=== PATIENT | male | born 1945 | race Caucasian/White ===

== ENCOUNTER 2016-07-09 07:28 | Day surgery (SDC) | payer MEDICARE, OTHER ==
[~2016-07-09] VITALS: Ht 172.7 cm; Wt 101.9 kg
[~2016-07-09 07:28] MED LIST: ANUCORT HC25 M1 RC; ASPIRIN E.C. 8181 MG PO; ATENOLOL25 MG PO; BISACODYL RC; CIPRO 500MG TA500 MG PO; ERYTHROMYCIN500 M1; FLAX SEED OIL1000 M1; HYDROCHLOR50 MG PO; LISINOPRIL40 MG PO; MULTIPLE VITAMI1 CAP PO; NEOMYCIN S500 MG/TAB; OMEGA 31000 MG PO; PRINIVIL40 MG PO; PSYLLIUM HUSK1 CAP PO; TENORMIN 2525 MG/TAB; [UNRECOGNIZED DRUG - OTHER] REC
[2016-07-09 08:15] VITALS: BP 128/75; PULSE 59; TEMP 98.1
[2016-07-09] MEDS ORDERED: HYDRODIURIL50 MG PO (08:40)
[2016-07-09] MEDS ORDERED: ZESTRIL40 MG PO (08:41)
[2016-07-09] MEDS ORDERED: FLAX OIL1000 MG PO (08:42)
[2016-07-09] MEDS ORDERED: ASPIRIN 81M81 MG/TA2 PO (08:42)
[2016-07-09] MEDS ORDERED: MULTIPLE VITAMI1 CAP PO (08:42)
[2016-07-09] MEDS ORDERED: AZILECT1 MG PO (08:43)
[2016-07-09] MEDS ORDERED: ANUSOL-HC SUPPO25 MG RC (08:43)
[2016-07-09] MEDS ORDERED: PRILOSEC 20MG20 MG PO (08:43)
[2016-07-09] MEDS ORDERED: OMEGA-3 FISH1000 MG PO (08:44)
[2016-07-09 09:40] VITALS: BP 137/79; PULSE 58; TEMP 97.5
[2016-07-09 09:55] VITALS: BP 127/77; PULSE 53
[2016-07-09 10:10] VITALS: BP 132/71; PULSE 60
== END 2016-07-09 10:30 | disposition home or self-care (01) ==
LOC: SDCO 07:28
DX: D12.2 Benign neoplasm of ascending colon (principal); D12.4 Benign neoplasm of descending colon; K63.5 Polyp of colon; I10 Essential (primary) hypertension; E78.00 Pure hypercholesterolemia, unspecified; K57.30 Diverticulosis of large intestine without perforation or abscess without bleeding; Z86.010 Personal history of colon polyps
CPT/HCPCS: OP; J2250; J3010; J7030

== ENCOUNTER 2017-06-27 13:00 | Outpatient (RCR) | payer MEDICARE, OTHER ==
[~2017-06-27 13:00] MED LIST changes: +ANUSOL-HC SUPPO25 MG RC; +ASPIRIN 81M81 MG/TA2 PO; +AZILECT1 MG PO; +FLAX OIL1000 MG PO; +HYDRODIURIL50 MG PO; +OMEGA-3 FISH1000 MG PO; +PRILOSEC 20MG20 MG PO; +ZESTRIL40 MG PO
== END 2017-06-30 | disposition home or self-care (01) ==
LOC: MKS.ESL.PT
DX: G20 Parkinson's disease (principal); R26.9 Unspecified abnormalities of gait and mobility
CPT/HCPCS: G8978-GP; G8979-GP; G8999-GN; G9186-GN

== ENCOUNTER → 2017-10-04 | Outpatient (RCR) | payer MEDICARE, OTHER | END | disposition home or self-care (01) | LOC: WSST → MKS.ESL.PT 07-06 09:30 → WSPT 07-08 11:15 → MKS.ESL.PT 07-23 09:15 → WSPT 08-10 10:30 → MKS.ESL.PT 08-13 10:00 → WSST 08-15 10:00 → MKS.ESL.PT 08-20 10:00 → WSST 08-22 13:45 → MKS.ESL.PT 08-27 10:00 → WSST 08-29 13:45 → MKS.ESL.PT 09-03 10:00 → WSST 09-05 13:45 → WSPT 09-06 13:00 → WSST 09-12 13:45 → WSPT 09-20 09:30 → MKS.ESL.PT 09-24 10:00 → WSST 09-26 13:45 → WSPT 09:30 | DX: G20 Parkinson's disease (principal) | CPT/HCPCS: G8978-GP; G8979-GP; G8999-GN; G9186-GN ==

== ENCOUNTER 2017-10-30 11:15 | Outpatient (RCR) | payer MEDICARE, OTHER | END 2018-01-08 | disposition home or self-care (01) | LOC: WSST | DX: G20 Parkinson's disease (principal) ==

== ENCOUNTER 2018-02-03 12:39 | Emergency (ER) | payer MEDICARE, OTHER ==
[~2018-02-03] VITALS: Ht 172.7 cm; Wt 99.1 kg
[2018-02-03 12:40] VITALS: TEMP 97.7
[2018-02-03 13:26] LABS: BASO # 0.1 (0.0-0.2); BASO % 1.3 % (0.0-2.0); EOS # 0.1 (0.0-0.7); EOS % 2.3 % (0-4.0); GRAN # 3.7 (1.4-6.5); GRAN % 68.4 % (42.2-75.2); HEMATOCRIT 39.9 % (42.0-52.0); HEMOGLOBIN 13.8 g/dl (13.5-18.0); LYMPH # 0.9 (1.2-3.4); LYMPH % 16.5 % (20.0-51.0); MEAN CELL VOLUME 91 fl (80.0-100.0); MEAN CORPUSCULAR HEMOGLOBIN 32 pg (27.0-31.0); MEAN CORPUSCULAR HGB CONC 35 g/dl (33.0-37.0); MEAN PLATELET VOLUME 11.3 fl (7.4-10.4); MONO # 0.6 (0.1-0.6); MONO % 11.3 % (1.7-9.3); PLATELET COUNT 143 K/mm3 (130-400); RED BLOOD COUNT 4.38 M/mm3 (4.20-5.60); REDCELL DISTRIBUTION WIDTH-CV 12.8 % (11.5-14.5)
[2018-02-03 14:13] LABS: ALANINE AMINOTRANSFERASE 20 U/L (21-72); ALBUMIN 3.9 gm/dL (3.5-5.0); ALKALINE PHOSPHATASE 64 U/L (50-136); ANION GAP 5 mmol/L (7-16); AST,SGOT 16 U/L (15-37); BILIRUBIN,TOTAL 0.7 mg/dL (0.0-1.0); BLOOD UREA NITROGEN 21 mg/dL (9-20); CALCIUM 9.8 mg/dL (8.4-10.2); CARBON DIOXIDE 32 mmol/L (22-30); CHLORIDE 101 mmol/L (98-107); CREATININE, serum 1.02 mg/dL (0.66-1.25); GLUCOSE 105 mg/dL (74-106); POTASSIUM 3.8 mmol/L (3.4-5.0); SODIUM 138 mmol/L (137-145); TOTAL PROTEIN 6.7 gm/dL (6.4-8.2)
[2018-02-03 14:17] LABS: COLLECTION METHOD CLEAN CATCH
[2018-02-03 14:24] LABS: MUCOUS Present /lpf; PH 6 (5-8); SQUAMOUS EPITHELIAL None Seen /hpf; URINE APPEARANCE Clear; URINE BACTERIA None Seen /hpf; URINE BILIRUBIN Negative (NEGATIVE); URINE BLOOD Negative (NEGATIVE); URINE COLOR Yellow; URINE GLUCOSE Negative (NEGATIVE); URINE KETONE Negative (NEGATIVE); URINE LEUKOCYTE ESTERASE Negative (NEGATIVE); URINE NITRATE Negative (NEGATIVE); URINE PROTEIN(semi-quant) Negative (NEGATIVE); URINE RBC 0-2 /hpf; URINE UROBILINOGEN >=4.0 mg/dL (NEGATIVE)
[2018-02-03 14:33] LABS: TROPONIN-I < 0.012 ng/mL (0.000-0.034)
[2018-02-03 15:40] VITALS: BP 130/70; PULSE 56
== END 2018-02-03 15:42 | disposition home or self-care (01) ==
LOC: COL.ER 12:39
PROVIDERS: Emergency Medicine
DX: R53.81 Other malaise (principal); I10 Essential (primary) hypertension; G20 Parkinson's disease; E78.00 Pure hypercholesterolemia, unspecified; Z79.82 Long term (current) use of aspirin
CPT/HCPCS: J7030

== ENCOUNTER 2018-12-29 09:00 | Outpatient (RCR) | payer MEDICARE, OTHER | END 2019-03-23 | disposition still patient (30) | LOC: WSST | DX: G20 Parkinson's disease (principal) ==

== ENCOUNTER 2019-01-10 18:26 | Emergency (ER) | payer MEDICARE, OTHER ==
[~2019-01-10] VITALS: Ht 172.7 cm; Wt 91.4 kg
[2019-01-10 18:32] VITALS: TEMP 98.2
[2019-01-10 19:09] LABS: BASO # 0.1 (0.0-0.2); BASO % 1.9 % (0.0-2.0); EOS # 0.1 (0.0-0.7); EOS % 2.5 % (0-4.0); GRAN # 3.3 (1.4-6.5); GRAN % 63.2 % (42.2-75.2); HEMOGLOBIN 12.7 g/dl (13.5-18.0); LYMPH # 0.9 (1.2-3.4); LYMPH % 16.7 % (20.0-51.0); MEAN CELL VOLUME 89 fl (80.0-100.0); MEAN CORPUSCULAR HEMOGLOBIN 31 pg (27.0-31.0); MEAN CORPUSCULAR HGB CONC 34 g/dl (33.0-37.0); MONO # 0.8 (0.1-0.6); MONO % 15.5 % (1.7-9.3); PLATELET COUNT 165 K/mm3 (130-400); RED BLOOD COUNT 4.15 M/mm3 (4.20-5.60); REDCELL DISTRIBUTION WIDTH-CV 13.1 % (11.5-14.5)
[2019-01-10 19:13] LABS: ALANINE AMINOTRANSFERASE 13 U/L (21-72); ALBUMIN 3.8 gm/dL (3.5-5.0); ALKALINE PHOSPHATASE 74 U/L (50-136); ANION GAP 8 mmol/L (7-16); AST,SGOT 84 U/L (15-37); BILIRUBIN,TOTAL 1.2 mg/dL (0.0-1.0); BLOOD UREA NITROGEN 21 mg/dL (9-20); C-REACTIVE PROTEIN 1.4 mg/dL (0.0-0.9); CALCIUM 9.8 mg/dL (8.4-10.2); CARBON DIOXIDE 25 mmol/L (22-30); CHLORIDE 106 mmol/L (98-107); CREATININE, serum 0.94 (0.66-1.25); GLUCOSE 116 mg/dL (74-106); POTASSIUM 3.1 mmol/L (3.4-5.0); SODIUM 139 mmol/L (137-145); TOTAL PROTEIN 6.6 gm/dL (6.4-8.2)
[2019-01-10 19:23] LABS: ALCOHOL(ethanol),MEDICAL < 10 mg/dL
[2019-01-10 21:54] LABS: COLLECTION METHOD CLEAN CATCH
[2019-01-10 22:01] LABS: MUCOUS Present /lpf; PH 7 (5-8); SQUAMOUS EPITHELIAL None Seen /hpf; URINE APPEARANCE Clear; URINE BACTERIA None Seen /hpf; URINE BILIRUBIN Negative (NEGATIVE); URINE BLOOD Negative (NEGATIVE); URINE COLOR Yellow; URINE GLUCOSE Negative (NEGATIVE); URINE KETONE Negative (NEGATIVE); URINE LEUKOCYTE ESTERASE Negative (NEGATIVE); URINE NITRATE Negative (NEGATIVE); URINE PROTEIN(semi-quant) Negative (NEGATIVE); URINE RBC None Seen /hpf
[2019-01-10 22:28] VITALS: BP 117/62; PULSE 56
== END 2019-01-10 22:28 | disposition home or self-care (01) ==
LOC: COL.ER 18:26
PROVIDERS: Emergency Medicine
DX: S00.93XA Contusion of unspecified part of head, initial encounter (principal); S80.11XA Contusion of right lower leg, initial encounter; I10 Essential (primary) hypertension; G20 Parkinson's disease; R40.2412 Glasgow coma scale score 13-15, at arrival to emergency department; F17.210 Nicotine dependence, cigarettes, uncomplicated; Z85.46 Personal history of malignant neoplasm of prostate; Z79.82 Long term (current) use of aspirin; W19.XXXA Unspecified fall, initial encounter; Y92.129 Unspecified place in nursing home as the place of occurrence of the external cause
CPT/HCPCS: J7030

== ENCOUNTER → 2019-01-13 | Outpatient (CLI) | payer MEDICARE, OTHER ==
[2019-01-13 10:41] LABS: BASO # 0.1 (0.0-0.2); BASO % 1.8 % (0.0-2.0); EOS # 0.1 (0.0-0.7); EOS % 3.6 % (0-4.0); GRAN # 2.5 (1.4-6.5); GRAN % 64.2 % (42.2-75.2); HEMATOCRIT 38.5 % (42.0-52.0); HEMOGLOBIN 13.5 g/dl (13.5-18.0); LYMPH # 0.6 (1.2-3.4); LYMPH % 15.4 % (20.0-51.0); MEAN CELL VOLUME 88 fl (80.0-100.0); MEAN CORPUSCULAR HEMOGLOBIN 31 pg (27.0-31.0); MEAN CORPUSCULAR HGB CONC 35 g/dl (33.0-37.0); MEAN PLATELET VOLUME 12.2 fl (7.4-10.4); MONO # 0.6 (0.1-0.6); MONO % 14.7 % (1.7-9.3); PLATELET COUNT 156 K/mm3 (130-400); RED BLOOD COUNT 4.37 M/mm3 (4.20-5.60); REDCELL DISTRIBUTION WIDTH-CV 12.9 % (11.5-14.5)
[2019-01-13 11:03] LABS: ALBUMIN 3.7 gm/dL (3.5-5.0); CALCIUM 9.4 mg/dL (8.4-10.2); CREATININE, serum 0.73 (0.66-1.25); TOTAL PROTEIN 6.6 gm/dL (6.4-8.2)
== END ==
LOC: ZLAB.STJ 10:06
PROVIDERS: Family Medicine
DX: I11.9 Hypertensive heart disease without heart failure (principal); G20 Parkinson's disease; R26.2 Difficulty in walking, not elsewhere classified

== ENCOUNTER → 2019-01-13 | Outpatient (CLI) | payer MEDICARE, OTHER ==
[2019-01-13 14:29] LABS: COLLECTION METHOD CLEAN CATCH
[2019-01-13 14:57] LABS: MUCOUS Present /lpf; PH 6 (5-8); SQUAMOUS EPITHELIAL None Seen /hpf; URINE APPEARANCE Clear; URINE BACTERIA None Seen /hpf; URINE BILIRUBIN Negative (NEGATIVE); URINE BLOOD Negative (NEGATIVE); URINE CALCIUM OXALATE CRYSTAL Present /hpf; URINE COLOR Yellow; URINE GLUCOSE Negative (NEGATIVE); URINE KETONE Trace (NEGATIVE); URINE LEUKOCYTE ESTERASE Negative (NEGATIVE); URINE NITRATE Negative (NEGATIVE); URINE PROTEIN(semi-quant) Negative (NEGATIVE); URINE RBC 0-2 /hpf; URINE UROBILINOGEN >=4.0 mg/dL (NEGATIVE)
== END ==
LOC: ZLAB.STJ 14:04
PROVIDERS: Family Medicine
DX: R35.0 Frequency of micturition (principal)

== ENCOUNTER → 2019-01-23 | Outpatient (CLI) | payer MEDICARE, OTHER ==
[2019-01-23 14:54] LABS: ALBUMIN 3.9 gm/dL (3.5-5.0); BILIRUBIN,TOTAL 0.7 mg/dL (0.0-1.0); CALCIUM 9.5 mg/dL (8.4-10.2); CREATININE, serum 0.78 (0.66-1.25); POTASSIUM 3.5 mmol/L (3.4-5.0); TOTAL PROTEIN 6.8 gm/dL (6.4-8.2)
== END ==
LOC: COL.LAB 14:26 → ZLAB.STJ 14:26
PROVIDERS: Family Medicine
DX: G20 Parkinson's disease (principal); R60.9 Edema, unspecified

== ENCOUNTER → 2019-04-24 | Outpatient (CLI) | payer MEDICARE, OTHER ==
[2019-04-24] VITALS (10 sets, daily range): BP systolic 130–155; BP diastolic 75–87; PULSE 58–66
[~2019-04-24] VITALS: Ht 172.7 cm; Wt 78.2 kg
[~2019-04-24] MED LIST changes: +B-12 500 MCG PO; +EPA FISH OIL1 SGL PO; +K-DUR20 MEQ PO; +LASIX 20MG TABL20 MG PO; +REQUIP 1MG T1 MG/TAB PO; +SINEMET 25/101 UDTAB PO; +SINEMET CR 50 M1 TER PO; +VITAMIN D31000 IU PO
--- NOTE | 2019-04-24 10:29 | NUR ---
PT TAKEN TO CT ROOM AND POSITIONED ON THE BED. MONITORING EQUIPMENT PLACED AND IMAGES TAKEN.
--- NOTE | 2019-04-24 10:48 | NUR ---
PT GIVEN 1 MG VERSED AND 50 MCG OF FENTANYL
== END ==
LOC: COL.RAD 09:37
DX: R19.00 Intra-abdominal and pelvic swelling, mass and lump, unspecified site (principal)
CPT/HCPCS: J2250; J3010

== ENCOUNTER → 2019-04-30 | Outpatient (CLI) | payer MEDICARE, OTHER ==
[2019-04-30 11:45] LABS: COLLECTION METHOD CLEAN CATCH
[2019-04-30 11:59] LABS: MUCOUS Present /lpf; PH 7 (5-8); SQUAMOUS EPITHELIAL 0-2 /hpf; URINE APPEARANCE Clear; URINE BACTERIA None Seen /hpf; URINE BILIRUBIN Negative (NEGATIVE); URINE BLOOD Negative (NEGATIVE); URINE COLOR Yellow; URINE GLUCOSE Negative (NEGATIVE); URINE KETONE Negative (NEGATIVE); URINE LEUKOCYTE ESTERASE Negative (NEGATIVE); URINE NITRATE Negative (NEGATIVE); URINE PROTEIN(semi-quant) Negative (NEGATIVE); URINE RBC 0-2 /hpf; URINE UROBILINOGEN Negative (NEGATIVE)
== END ==
LOC: ZLAB.STJ 09:32
PROVIDERS: Family Medicine
DX: Z13.89 Encounter for screening for other disorder (principal)

== ENCOUNTER → 2019-07-02 | Outpatient (CLI) | payer MEDICARE, OTHER ==
[2019-07-02 12:12] LABS: BASO # 0.1 (0.0-0.2); BASO % 1.9 % (0.0-2.0); EOS # 0.2 (0.0-0.7); EOS % 7.5 % (0-4.0); GRAN # 1.7 (1.4-6.5); GRAN % 51.9 % (42.2-75.2); HEMOGLOBIN 11.3 g/dl (13.5-18.0); LYMPH # 0.7 (1.2-3.4); MEAN CELL VOLUME 92 fl (80.0-100.0); MEAN CORPUSCULAR HEMOGLOBIN 31 pg (27.0-31.0); MEAN CORPUSCULAR HGB CONC 33 g/dl (33.0-37.0); MEAN PLATELET VOLUME 11.2 fl (7.4-10.4); MONO # 0.5 (0.1-0.6); MONO % 15.4 % (1.7-9.3); PLATELET COUNT 131 K/mm3 (130-400); REDCELL DISTRIBUTION WIDTH-CV 13.9 % (11.5-14.5)
[2019-07-02 12:27] LABS: BILIRUBIN,TOTAL 0.7 mg/dL (0.0-1.0); CALCIUM 9.9 mg/dL (8.4-10.2); CHOLESTEROL RISK RATIO 4.7; CREATININE, serum 0.65 (0.66-1.25); POTASSIUM 4.1 mmol/L (3.4-5.0); TOTAL PROTEIN 6.6 gm/dL (6.4-8.2)
[2019-07-02 12:40] LABS: ERYTHROCYTE SEDIMENTATION RATE 7 mm/hr (0-30)
== END ==
LOC: ZCOL.LAB 11:22
PROVIDERS: Internal Medicine Medical Oncology
DX: G20 Parkinson's disease (principal); R63.4 Abnormal weight loss; R26.2 Difficulty in walking, not elsewhere classified

== ENCOUNTER → 2019-07-06 | Outpatient (CLI) | payer MEDICARE, OTHER | LOC: COL.RAD 10:47 | DX: R59.0 Localized enlarged lymph nodes (principal); S22.32XD Fracture of one rib, left side, subsequent encounter for fracture with routine healing; R93.89 Abnormal findings on diagnostic imaging of other specified body structures | CPT/HCPCS: Q9967 ==

== ENCOUNTER → 2019-11-10 | Outpatient (CLI) | payer MEDICARE, OTHER ==
[2019-11-10 12:17] LABS: ALBUMIN 4.2 gm/dL (3.5-5.0); BILIRUBIN,TOTAL 0.9 mg/dL (0.0-1.0); CALCIUM 9.8 mg/dL (8.4-10.2); CREATININE, serum 0.67 (0.66-1.25); POTASSIUM 4.2 mmol/L (3.4-5.0)
[2019-11-10 12:18] LABS: BASO # 0.1 (0.0-0.2); BASO % 2.3 % (0.0-2.0); EOS # 0.2 (0.0-0.7); EOS % 6.5 % (0-4.0); GRAN # 1.5 (1.4-6.5); GRAN % 49.1 % (42.2-75.2); HEMOGLOBIN 12.2 g/dl (13.5-18.0); LYMPH # 0.8 (1.2-3.4); LYMPH % 27.2 % (20.0-51.0); MEAN CELL VOLUME 91 fl (80.0-100.0); MEAN CORPUSCULAR HEMOGLOBIN 30 pg (27.0-31.0); MEAN CORPUSCULAR HGB CONC 33 g/dl (33.0-37.0); MEAN PLATELET VOLUME 11.6 fl (7.4-10.4); MONO # 0.5 (0.1-0.6); MONO % 14.6 % (1.7-9.3); PLATELET COUNT 127 K/mm3 (130-400); RED BLOOD COUNT 4.03 M/mm3 (4.20-5.60); REDCELL DISTRIBUTION WIDTH-CV 13.5 % (11.5-14.5)
[2019-11-10 12:19] LABS: HEMATOCRIT 36.6 % (42.0-52.0)
== END ==
LOC: ZLAB.STJ 11:38
PROVIDERS: Internal Medicine
DX: C61 Malignant neoplasm of prostate (principal); D64.9 Anemia, unspecified; E78.5 Hyperlipidemia, unspecified; R73.09 Other abnormal glucose; E55.9 Vitamin D deficiency, unspecified; E46 Unspecified protein-calorie malnutrition

== ENCOUNTER → 2019-12-21 | Outpatient (CLI) | payer MEDICARE, OTHER ==
[2019-12-21 13:44] LABS: BASO # 0.1 (0.0-0.2); BASO % 2.8 % (0.0-2.0); EOS # 0.3 (0.0-0.7); EOS % 8.3 % (0-4.0); GRAN # 1.8 (1.4-6.5); GRAN % 51.3 % (42.2-75.2); LYMPH # 0.8 (1.2-3.4); LYMPH % 21.9 % (20.0-51.0); MEAN CELL VOLUME 90 fl (80.0-100.0); MEAN CORPUSCULAR HEMOGLOBIN 30 pg (27.0-31.0); MEAN CORPUSCULAR HGB CONC 34 g/dl (33.0-37.0); MONO # 0.5 (0.1-0.6); MONO % 15.4 % (1.7-9.3); PLATELET COUNT 136 K/mm3 (130-400); REDCELL DISTRIBUTION WIDTH-CV 13.6 % (11.5-14.5)
[2019-12-21 13:50] LABS: ALBUMIN 4.3 gm/dL (3.5-5.0); BILIRUBIN,TOTAL 0.7 mg/dL (0.0-1.0); CALCIUM 9.8 mg/dL (8.4-10.2); CREATININE, serum 0.81 (0.66-1.25); HEMATOCRIT 35.8 % (42.0-52.0); TOTAL PROTEIN 7.4 gm/dL (6.4-8.2)
== END ==
LOC: ZLAB.STJ 12:23
PROVIDERS: Internal Medicine Medical Oncology
DX: G20 Parkinson's disease (principal); I11.9 Hypertensive heart disease without heart failure

== ENCOUNTER → 2019-12-23 | Outpatient (CLI) | payer MEDICARE, OTHER | LOC: COL.RAD 09:27 | DX: K44.9 Diaphragmatic hernia without obstruction or gangrene (principal); R59.0 Localized enlarged lymph nodes | CPT/HCPCS: Q9967 ==

== ENCOUNTER → 2020-02-19 | Outpatient (CLI) | payer MEDICARE, OTHER ==
[2020-02-19 12:22] LABS: BASO # 0.1 (0.0-0.2); BASO % 2.8 % (0.0-2.0); EOS # 0.3 (0.0-0.7); EOS % 10.2 % (0-4.0); GRAN # 1.4 (1.4-6.5); GRAN % 42.7 % (42.2-75.2); HEMOGLOBIN 11.3 g/dl (13.5-18.0); LYMPH # 0.9 (1.2-3.4); LYMPH % 26.8 % (20.0-51.0); MEAN CELL VOLUME 91 fl (80.0-100.0); MEAN CORPUSCULAR HEMOGLOBIN 30 pg (27.0-31.0); MEAN CORPUSCULAR HGB CONC 33 g/dl (33.0-37.0); MEAN PLATELET VOLUME 11.1 fl (7.4-10.4); MONO # 0.6 (0.1-0.6); MONO % 17.2 % (1.7-9.3); PLATELET COUNT 121 K/mm3 (130-400); RED BLOOD COUNT 3.78 M/mm3 (4.20-5.60); REDCELL DISTRIBUTION WIDTH-CV 13.7 % (11.5-14.5)
[2020-02-19 12:29] LABS: ALBUMIN 3.5 gm/dL (3.5-5.0); ALKALINE PHOSPHATASE 82 U/L (50-136); ANION GAP 5 mmol/L (7-16); AST,SGOT 20 U/L (15-37); BILIRUBIN,TOTAL 0.8 mg/dL (0.0-1.0); BLOOD UREA NITROGEN 17 mg/dL (9-20); CALCIUM 9.6 mg/dL (8.4-10.2); CARBON DIOXIDE 26 mmol/L (22-30); CHLORIDE 106 mmol/L (98-107); CREATININE, serum 0.76 (0.66-1.25); GLUCOSE 102 mg/dL (74-106); LACTATE DEHYDROGENASE 583 U/L (313-618); POTASSIUM 3.9 mmol/L (3.4-5.0); SODIUM 137 mmol/L (137-145); TOTAL PROTEIN 6.1 gm/dL (6.4-8.2)
[2020-02-19 12:34] LABS: ALANINE AMINOTRANSFERASE < 4 U/L (4-49); HEMATOCRIT 34.2 % (42.0-52.0)
== END ==
LOC: ZLAB.STJ 11:32
PROVIDERS: Internal Medicine Medical Oncology
DX: G20 Parkinson's disease (principal); I11.9 Hypertensive heart disease without heart failure

== ENCOUNTER 2020-04-20 09:50 | Emergency (ER) | payer MEDICARE, OTHER ==
[~2020-04-20] VITALS: Ht 175.3 cm; Wt 79.5 kg
[2020-04-20 09:51] VITALS: TEMP 98.1
[2020-04-20 10:23] LABS: HEMOGLOBIN 11.7 g/dl (13.5-18.0); MEAN CELL VOLUME 86 fl (80.0-100.0); MEAN CORPUSCULAR HEMOGLOBIN 30 pg (27.0-31.0); MEAN CORPUSCULAR HGB CONC 34 g/dl (33.0-37.0); MEAN PLATELET VOLUME 10.6 fl (7.4-10.4); PLATELET COUNT 124 K/mm3 (130-400); RED BLOOD COUNT 3.95 M/mm3 (4.20-5.60); REDCELL DISTRIBUTION WIDTH-CV 14.1 % (11.5-14.5)
[2020-04-20 10:33] LABS: INR 1.2 (0.8-3.0); PROTHROMBIN TIME 12.9 SECONDS (9.7-12.8)
[2020-04-20 10:36] LABS: PARTIAL THROMBOPLASTIN TIME 29.2 SECONDS (26.0-37.0)
[2020-04-20 10:37] LABS: ALANINE AMINOTRANSFERASE 13 U/L (4-49); ALBUMIN 3.9 gm/dL (3.5-5.0); ALKALINE PHOSPHATASE 80 U/L (50-136); ANION GAP 7 mmol/L (7-16); AST,SGOT 69 U/L (15-37); BLOOD UREA NITROGEN 24 mg/dL (9-20); CALCIUM 11.1 mg/dL (8.4-10.2); CARBON DIOXIDE 23 mmol/L (22-30); CHLORIDE 106 mmol/L (98-107); CREATININE, serum 0.91 (0.66-1.25); GLUCOSE 118 mg/dL (74-106); LIPASE 193 U/L (23-300); POTASSIUM 3.6 mmol/L (3.4-5.0); SODIUM 136 mmol/L (137-145); TOTAL PROTEIN 6.6 gm/dL (6.4-8.2)
[2020-04-20 10:50] LABS: TROPONIN-I < 0.012 ng/mL (0.000-0.035)
[2020-04-20 11:22] LABS: BASOPHIL 2 % (0-2); EOSINOPHIL 3 % (0-4); LYMPHOCYTE 24 % (20.0-51.0); NEUTROPHILS 59 % (42.0-75.2); PLATELET ESTIMATE DECREASED (NORMAL)
[2020-04-20 11:23] LABS: OVALOCYTES 1+; POIKILOCYTOSIS 1+; TOXIC GRANULATION PRESENT
[2020-04-20] MEDS ORDERED: TYLENOL 325MG325 MG PO (13:19)
[2020-04-20 14:16] VITALS: BP 135/66; PULSE 72
== END 2020-04-20 13:40 | disposition home or self-care (01) ==
LOC: COL.ER 09:50
PROVIDERS: Emergency Medicine
DX: S30.811A Abrasion of abdominal wall, initial encounter (principal); M25.551 Pain in right hip; I95.9 Hypotension, unspecified; Z88.1 Allergy status to other antibiotic agents; Z85.46 Personal history of malignant neoplasm of prostate; Z79.82 Long term (current) use of aspirin; W19.XXXA Unspecified fall, initial encounter; Y92.009 Unspecified place in unspecified non-institutional (private) residence as the place of occurrence of the external cause
CPT/HCPCS: Q9967

== ENCOUNTER → 2020-06-22 | Outpatient (CLI) | payer MEDICARE, OTHER ==
[~2020-06-22] MED LIST changes: +MIRALAX PA17 GM/Dose PO; +TYLENOL 325MG325 MG PO
[2020-06-22 13:05] LABS: CALCIUM 9.6 mg/dL (8.4-10.2); CREATININE, serum 0.82 (0.66-1.25)
== END ==
LOC: ZLAB.STJ 11:43
PROVIDERS: Internal Medicine
DX: I11.9 Hypertensive heart disease without heart failure (principal); E11.00 Type 2 diabetes mellitus with hyperosmolarity without nonketotic hyperglycemic-hyperosmolar coma (NKHHC)

== ENCOUNTER → 2020-08-17 | Outpatient (CLI) | payer MEDICARE, OTHER ==
[2020-08-17 17:37] LABS: HEMOGLOBIN 11.8 g/dl (13.5-18.0); MEAN CELL VOLUME 87 fl (80.0-100.0); MEAN CORPUSCULAR HEMOGLOBIN 29 pg (27.0-31.0); MEAN CORPUSCULAR HGB CONC 34 g/dl (33.0-37.0); MEAN PLATELET VOLUME 12.2 fl (7.4-10.4); PLATELET COUNT 81 K/mm3 (130-400); RED BLOOD COUNT 4.03 M/mm3 (4.20-5.60); REDCELL DISTRIBUTION WIDTH-CV 14.2 % (11.5-14.5)
[2020-08-17 17:43] LABS: ALBUMIN 3.5 gm/dL (3.5-5.0); BILIRUBIN,TOTAL 1.1 mg/dL (0.0-1.0); CALCIUM 11.7 mg/dL (8.4-10.2); CREATININE, serum 1.18 (0.66-1.25); POTASSIUM 3.7 mmol/L (3.4-5.0); TOTAL PROTEIN 6.3 gm/dL (6.4-8.2)
[2020-08-17 17:46] LABS: HEMATOCRIT 35.2 % (42.0-52.0)
[2020-08-17 18:12] LABS: BAND 4 % (0-10); EOSINOPHIL 2 % (0-4); LYMPHOCYTE 24 % (20.0-51.0); NEUTROPHILS 62 % (42.0-75.2)
[2020-08-17 18:13] LABS: PLATELET ESTIMATE DECREASED (NORMAL)
[2020-08-17 18:14] LABS: OVALOCYTES 1+; TEAR DROP CELLS 1+
[2020-08-18 08:01] LABS: PATHOLOGY DIFF REVIEW OK
== END ==
LOC: ZLAB.STJ 16:58
PROVIDERS: Internal Medicine Medical Oncology
DX: I10 Essential (primary) hypertension (principal); R93.89 Abnormal findings on diagnostic imaging of other specified body structures

== ENCOUNTER → 2020-08-29 | Outpatient (CLI) | payer MEDICARE, OTHER | LOC: ZCOL.LAB 17:29 | DX: I11.9 Hypertensive heart disease without heart failure (principal) ==

== ENCOUNTER → 2020-08-30 | Outpatient (CLI) | payer MEDICARE, OTHER ==
[2020-08-30 15:19] LABS: HEMATOCRIT 37.1 % (42.0-52.0); MEAN CELL VOLUME 87 fl (80.0-100.0); MEAN CORPUSCULAR HEMOGLOBIN 28 pg (27.0-31.0); MEAN CORPUSCULAR HGB CONC 32 g/dl (33.0-37.0); MEAN PLATELET VOLUME 12.2 fl (7.4-10.4); PLATELET COUNT 146 K/mm3 (130-400); RED BLOOD COUNT 4.26 M/mm3 (4.20-5.60); REDCELL DISTRIBUTION WIDTH-CV 14.4 % (11.5-14.5)
[2020-08-30 15:24] LABS: ALBUMIN 3.5 gm/dL (3.5-5.0); BILIRUBIN,TOTAL 1.1 mg/dL (0.0-1.0); CALCIUM 11.5 mg/dL (8.4-10.2); CREATININE, serum 0.93 (0.66-1.25); POTASSIUM 4.1 mmol/L (3.4-5.0); TOTAL PROTEIN 6.6 gm/dL (6.4-8.2)
[2020-08-30 16:32] LABS: BAND 14 % (0-10); BURR CELLS 1+; LYMPHOCYTE 39 % (20.0-51.0); NEUTROPHILS 43 % (42.0-75.2); OVALOCYTES 2+; PLATELET ESTIMATE NORMAL (NORMAL)
== END ==
LOC: ZLAB.STJ 13:38
PROVIDERS: Internal Medicine
DX: I11.9 Hypertensive heart disease without heart failure (principal)

== ENCOUNTER → 2020-09-14 | Outpatient (CLI) | payer MEDICARE, OTHER ==
[2020-09-15 00:55] LABS: CALCIUM, IONIZED, SERUM 1.46 mmol/L (1.19-1.41)
== END ==
LOC: ZLAB.STJ 10:29
PROVIDERS: Internal Medicine
DX: E55.9 Vitamin D deficiency, unspecified (principal); I11.9 Hypertensive heart disease without heart failure

== ENCOUNTER → 2020-10-24 | Outpatient (CLI) | payer MEDICARE, OTHER ==
[2020-10-24 14:14] LABS: ALBUMIN 3.4 gm/dL (3.5-5.0); BILIRUBIN,TOTAL 0.5 mg/dL (0.0-1.0); CREATININE, serum 0.81 (0.66-1.25); POTASSIUM 3.7 mmol/L (3.4-5.0); TOTAL PROTEIN 6.1 gm/dL (6.4-8.2)
== END ==
LOC: ZLAB.STJ 13:51
PROVIDERS: Internal Medicine Medical Oncology
DX: Z13.228 Encounter for screening for other metabolic disorders (principal)

== ENCOUNTER → 2020-10-25 | Outpatient (CLI) | payer MEDICARE, OTHER ==
[2020-10-25 18:07] LABS: HEMOGLOBIN 10.3 g/dl (13.5-18.0); MEAN CELL VOLUME 88 fl (80.0-100.0); MEAN CORPUSCULAR HEMOGLOBIN 29 pg (27.0-31.0); MEAN CORPUSCULAR HGB CONC 33 g/dl (33.0-37.0); MEAN PLATELET VOLUME 11.6 fl (7.4-10.4); PLATELET COUNT 111 K/mm3 (130-400); RED BLOOD COUNT 3.57 M/mm3 (4.20-5.60); REDCELL DISTRIBUTION WIDTH-CV 17.9 % (11.5-14.5)
[2020-10-25 18:10] LABS: HEMATOCRIT 31.5 % (42.0-52.0)
[2020-10-25 19:02] LABS: BAND 15 % (0-10); EOSINOPHIL 3 % (0-4); LYMPHOCYTE 46 % (20.0-51.0); NEUTROPHILS 30 % (42.0-75.2); PLATELET ESTIMATE DECREASED (NORMAL)
[2020-10-25 19:03] LABS: ANISOCYTOSIS 1+; HYPOCHROMIA 1+
[2020-10-25 19:04] LABS: OVALOCYTES 1+; POIKILOCYTOSIS 2+; SCHISTOCYTES 1+
[2020-10-25 19:05] LABS: TEAR DROP CELLS 1+
[2020-10-26 08:03] LABS: PATHOLOGY DIFF REVIEW OK
== END ==
LOC: ZLAB.STJ 16:50
PROVIDERS: Internal Medicine Medical Oncology
DX: I11.9 Hypertensive heart disease without heart failure (principal); R74.01 Elevation of levels of liver transaminase levels

== ENCOUNTER → 2020-10-26 | Outpatient (CLI) | payer MEDICARE, OTHER ==
[2020-10-26 10:08] LABS: HEMOGLOBIN 10.3 g/dl (13.5-18.0); MEAN CELL VOLUME 89 fl (80.0-100.0); MEAN CORPUSCULAR HEMOGLOBIN 29 pg (27.0-31.0); MEAN CORPUSCULAR HGB CONC 33 g/dl (33.0-37.0); PLATELET COUNT 111 K/mm3 (130-400); RED BLOOD COUNT 3.55 M/mm3 (4.20-5.60)
[2020-10-26 10:12] LABS: HEMATOCRIT 31.6 % (42.0-52.0)
[2020-10-26 10:31] LABS: BAND 10 % (0-10); BASOPHIL 3 % (0-2); EOSINOPHIL 4 % (0-4); NEUTROPHILS 29 % (42.0-75.2)
[2020-10-26 10:32] LABS: HYPOCHROMIA 1+; OVALOCYTES 2+; POIKILOCYTOSIS 3+
[2020-10-26 10:33] LABS: BURR CELLS 1+; PLATELET ESTIMATE NORMAL (NORMAL)
[2020-10-26 10:34] LABS: ANISOCYTOSIS 2+; LYMPHOCYTE 47 % (20.0-51.0)
== END ==
LOC: ZLAB.STJ 09:28
PROVIDERS: Internal Medicine Medical Oncology
DX: Z01.89 Encounter for other specified special examinations (principal)

== ENCOUNTER → 2020-10-31 | Outpatient (CLI) | payer MEDICARE, OTHER | LOC: ZLAB.STJ 15:48 | DX: E78.00 Pure hypercholesterolemia, unspecified (principal); R74.9 Abnormal serum enzyme level, unspecified ==

== ENCOUNTER → 2020-11-17 | Outpatient (CLI) | payer MEDICARE, OTHER ==
[2020-11-17 13:56] LABS: HEMOGLOBIN 11.2 g/dl (13.5-18.0); MEAN CELL VOLUME 87 fl (80.0-100.0); MEAN CORPUSCULAR HEMOGLOBIN 28 pg (27.0-31.0); MEAN CORPUSCULAR HGB CONC 33 g/dl (33.0-37.0); MEAN PLATELET VOLUME 12.3 fl (7.4-10.4); PLATELET COUNT 129 K/mm3 (130-400); RED BLOOD COUNT 3.96 M/mm3 (4.20-5.60); REDCELL DISTRIBUTION WIDTH-CV 16.4 % (11.5-14.5)
[2020-11-17 13:58] LABS: ALBUMIN 3.8 gm/dL (3.5-5.0); BILIRUBIN,TOTAL 1.2 mg/dL (0.0-1.0); CALCIUM 9.6 mg/dL (8.4-10.2); CREATININE, serum 0.81 (0.66-1.25); POTASSIUM 4.5 mmol/L (3.4-5.0); TOTAL PROTEIN 6.6 gm/dL (6.4-8.2)
[2020-11-17 14:11] LABS: HEMATOCRIT 34.5 % (42.0-52.0)
[2020-11-17 14:37] LABS: BAND 16 % (0-10); BASOPHIL 2 % (0-2); EOSINOPHIL 9 % (0-4); LYMPHOCYTE 46 % (20.0-51.0); NEUTROPHILS 21 % (42.0-75.2); OVALOCYTES 2+; PLATELET ESTIMATE DECREASED (NORMAL); SCHISTOCYTES 1+
[2020-11-17 14:38] LABS: ANISOCYTOSIS 1+; TEAR DROP CELLS 1+
== END ==
LOC: ZLAB.STJ 13:30
PROVIDERS: Internal Medicine Medical Oncology
DX: G20 Parkinson's disease (principal)

== ENCOUNTER → 2020-12-20 | Outpatient (CLI) | payer MEDICARE, OTHER ==
[2020-12-20 10:31] LABS: ALBUMIN 2.9 gm/dL (3.4-4.8); BILIRUBIN,TOTAL 0.9 mg/dL (0.2-1.2); CALCIUM 9.7 mg/dL (8.4-10.2); CREATININE, serum 0.9 mg/dL (0.72-1.25); POTASSIUM 4.2 mmol/L (3.5-4.5); TOTAL PROTEIN 5.1 gm/dL (6.2-8.1)
[2020-12-20 10:32] LABS: MEAN CELL VOLUME 86 fl (80.0-100.0); MEAN CORPUSCULAR HEMOGLOBIN 28 pg (27.0-31.0); MEAN CORPUSCULAR HGB CONC 32 g/dl (33.0-37.0); MEAN PLATELET VOLUME 12.7 fl (7.4-10.4); PLATELET COUNT 96 K/mm3 (130-400); RED BLOOD COUNT 3.61 M/mm3 (4.20-5.60); REDCELL DISTRIBUTION WIDTH-CV 16.7 % (11.5-14.5)
[2020-12-20 10:36] LABS: HEMATOCRIT 31.2 % (42.0-52.0)
[2020-12-20 10:53] LABS: BAND 16 % (0-10); EOSINOPHIL 4 % (0-4); LYMPHOCYTE 37 % (20.0-51.0); NEUTROPHILS 29 % (42.0-75.2); PLATELET ESTIMATE DECREASED (NORMAL)
[2020-12-20 10:54] LABS: ANISOCYTOSIS 1+
== END ==
LOC: ZLAB.STJ 10:25
PROVIDERS: Internal Medicine Medical Oncology
DX: R93.89 Abnormal findings on diagnostic imaging of other specified body structures (principal)

== ENCOUNTER 2021-01-06 11:47 | Inpatient (IN) | payer MEDICARE, OTHER ==
[2021-01-06] VITALS (294 sets, daily range): BP systolic 94; BP diastolic 70; PULSE 100; TEMP 97.6; O2SAT 64–98
[~2021-01-06] VITALS: Ht 175.3 cm; Wt 93.4 kg
[~2021-01-06 11:47] MED LIST changes: -MIRALAX PA17 GM/Dose PO
[2021-01-06 12:14] LABS: HEMOGLOBIN 10.3 g/dl (13.5-18.0); MEAN CELL VOLUME 85 fl (80.0-100.0); MEAN CORPUSCULAR HEMOGLOBIN 28 pg (27.0-31.0); MEAN CORPUSCULAR HGB CONC 32 g/dl (33.0-37.0); PLATELET COUNT 96 K/mm3 (130-400); RED BLOOD COUNT 3.74 M/mm3 (4.20-5.60); REDCELL DISTRIBUTION WIDTH-CV 17.7 % (11.5-14.5)
[2021-01-06 12:19] LABS: HEMATOCRIT 31.9 % (42.0-52.0)
[2021-01-06 12:28] LABS: ALANINE AMINOTRANSFERASE 7 U/L (0-55); ALBUMIN 2.8 gm/dL (3.4-4.8); ALCOHOL(ethanol),MEDICAL < 10 mg/dL (0-10); ALKALINE PHOSPHATASE 219 U/L (40-150); ANION GAP 8 mmol/L (7-16); AST,SGOT 55 U/L (5-34); BILIRUBIN,TOTAL 1.1 mg/dL (0.2-1.2); BLOOD UREA NITROGEN 36 mg/dL (8-26); CALCIUM 10.7 mg/dL (8.4-10.2); CARBON DIOXIDE 20 mmol/L (23-31); CHLORIDE 105 mmol/L (98-107); CREATININE, serum 1.62 mg/dL (0.72-1.25); GLUCOSE 95 mg/dL (70-99); POTASSIUM 5.4 mmol/L (3.5-4.5); SODIUM 133 mmol/L (136-145); TOTAL PROTEIN 5.4 gm/dL (6.2-8.1)
[2021-01-06 12:35] LABS: TROPONIN-I 0.443 ng/mL (0.00-0.033)
[2021-01-06 13:15] LABS: BAND 1 % (0-10); LYMPHOCYTE 40 % (20.0-51.0); METAMYELOCYTE 2 % (0-0); MYELOCYTE 1 % (0-0); NEUTROPHILS 47 % (42.0-75.2)
[2021-01-06 13:16] LABS: SCHISTOCYTES 1+
[2021-01-06 13:17] LABS: ANISOCYTOSIS 1+; HYPOCHROMIA 1+; PLATELET ESTIMATE DECREASED (NORMAL)
[2021-01-06 13:43] LABS: PARTIAL THROMBOPLASTIN TIME 33.3 SECONDS (26.0-37.0)
[2021-01-06 17:30] LABS: CREATININE, serum 1.48 mg/dL (0.72-1.25); POTASSIUM 4.4 mmol/L (3.5-4.5)
--- NOTE | 2021-01-06 17:38 | NUR ---
Pt arrived to the floor at 1626 from ED. The pt did scream out in pain on transfer from ED stretcher to room bed. Upon arrival, the patient had multiple infusions running. Heparin @ 1600 units/hr y-site on NS that was running through a pump at 50 into the 18g in the RAC. Vanc running on a dial-a-flow at 160 into the 18g in the LF, and a bag of 50ml NS unmarked into the RF. Upon assessment of the patient, he has significant swelling to the right forearm that appears to be a large hematoma. He has swelling to bilateral lower extremeties and periorbital puffiness. At 1650, we obtained a set of vitals; the BP was 83/52. Called pharmacist in charge owner to the room, the patient was not responding to verbal stimuli. This RN began to sternal rub the patient and he did not respond. Contacted Dr. Traore, who did not answer, Contact JONATHAN Munoz at 1657 who was in the room with Dr. Traore. Dr. Traore called the pharmacist in charge owner phone at 1658 who handed it to this RN. glazing department supervisor was in the hallway, she came in to assist, she firmly sternal rubbed the patient as well. He did begin moaning at that time. Repeat BP 81/52, o2 88% Oxygen set at 4L titrated up to 10L. The patient remained hypotensive at 83/52 o2 saturations increased with the 10L. Dr. Traore talked with the Chante who is the patient's DPOA; she clarified the DNR/I order and approved vasopressors to be used. The order for transfer to the ICU was initiated and norepinephrine was ordered. The Patient was transferred to the ICU at 1705 and transfer of care was compelted to WICHO Carbone.
[2021-01-06] MEDS ORDERED: MIRALAX PA17 GM/Dose PO (18:24)
[2021-01-06] MEDS ORDERED: LASIX 20MG TABL20 MG PO (18:26)
[2021-01-06] MEDS ORDERED: SINEMET CR 50 M1 TER PO (18:49)
[2021-01-07] VITALS (783 sets, daily range): BP systolic 82–100; BP diastolic 47–78; PULSE 99–121; TEMP 97–98; O2SAT 70–100
--- NOTE | 2021-01-07 00:25 | NUR ---
NOTED LUNG SOUNDS COARSE WITH END EXPIRATORY WHEEZES. WILL CALL FOR BREATHING TX ORDERS.
--- NOTE | 2021-01-07 00:35 | NUR ---
PT NOTED TO HAVE INCREASED WORK OF BREATHING, LUNG SOUNDS COARSE. ORDERS RECIEVED FOR BREATHING TXS, CALL TO RT TO ADMINISTER. PT REMAINS RESTLESS, HAS NOT GOTTEN MUCH SLEEP THIS EVENING. WILL CONTINUE TO MONITOR.
[2021-01-07 00:40] LABS: COLLECTION METHOD CLEAN CATCH
[2021-01-07 01:30] LABS: BUDDING YEAST Present /hpf; MUCOUS Present /lpf; PH 5 (5-8); SQUAMOUS EPITHELIAL 0-2 /hpf; URINE APPEARANCE Cloudy; URINE BACTERIA None Seen /hpf; URINE BILIRUBIN Negative (NEGATIVE); URINE BLOOD 3+ (NEGATIVE); URINE COLOR Amber; URINE GLUCOSE Negative (NEGATIVE); URINE KETONE Trace (NEGATIVE); URINE LEUKOCYTE ESTERASE Negative (NEGATIVE); URINE NITRATE Negative (NEGATIVE); URINE PROTEIN(semi-quant) 2+ (NEGATIVE); URINE RBC >50 /hpf; URINE UROBILINOGEN Negative (NEGATIVE); URINE WBC >50 /hpf
[2021-01-07 03:18] LABS: ARTERIAL BLD GAS O2 SATURATION 87.7 % (92-100); ARTERIAL BLD GAS TCO2 CT 21.2; ARTERIAL BLOOD GAS BASE EXCESS -5.4 (-2-2); ARTERIAL BLOOD GAS PCO2 38.6 mmHg (35-45); ARTERIAL BLOOD GAS PO2 60.3 mmHg (80-100); ARTERIAL BLOOD GAS pH 7.33 (7.35-7.45)
--- NOTE | 2021-01-07 06:00 | NUR ---
MORPHINE 1MG IV GIVEN PER PT'S RESTLESSNESS, SIGNS OF DISCOMFORT AND AIR HUNGER. WILL CONTINUE TO MONITOR.
[2021-01-07 08:29] LABS: MEAN CELL VOLUME 86 fl (80.0-100.0); MEAN CORPUSCULAR HGB CONC 32 g/dl (33.0-37.0); PLATELET COUNT 81 K/mm3 (130-400); RED BLOOD COUNT 3.26 M/mm3 (4.20-5.60); REDCELL DISTRIBUTION WIDTH-CV 17.9 % (11.5-14.5)
[2021-01-07 08:31] LABS: HEMATOCRIT 27.9 % (42.0-52.0); MEAN CORPUSCULAR HEMOGLOBIN 28 pg (27.0-31.0)
[2021-01-07 08:45] LABS: BAND 21 % (0-10); LYMPHOCYTE 36 % (20.0-51.0); NEUTROPHILS 36 % (42.0-75.2); PLATELET ESTIMATE DECREASED (NORMAL)
[2021-01-07 08:46] LABS: ANISOCYTOSIS 1+
[2021-01-07 08:50] LABS: CALCIUM 10.6 mg/dL (8.4-10.2); CHOLESTEROL RISK RATIO 13.5; CREATININE, serum 1.73 mg/dL (0.72-1.25); MAGNESIUM 2.1 mg/dL (1.6-2.6); POTASSIUM 4.7 mmol/L (3.5-4.5)
[2021-01-07 09:38] LABS: PATHOLOGY DIFF REVIEW OK
--- NOTE | 2021-01-07 10:43 | NUR ---
First visit from the phlebotomist. No needs right now.
[2021-01-08] VITALS (648 sets, daily range): BP systolic 70–114; BP diastolic 40–72; PULSE 101–134; TEMP 97.2–98.5; O2SAT 79–100
--- NOTE | 2021-01-08 01:10 | NUR ---
Patient care, medication administration and nursing documentation occurred during a Daylight Savings Time Change.
--- NOTE | 2021-01-08 03:47 | NUR ---
Constantine Cheung RN, ICU Plant Control Aide notified of patient's decline at the request of Monica SANDS, charge nurse to clear ok for family to visit with patient if they do choose to go with comfort care measures. Constantine Cheung RN states ok for family to be present, but please limit number of family members to 3-4. Monica SANDS made aware
[2021-01-08 07:35] LABS: MEAN CELL VOLUME 86 fl (80.0-100.0); MEAN CORPUSCULAR HGB CONC 33 g/dl (33.0-37.0); MEAN PLATELET VOLUME 12.7 fl (7.4-10.4); PLATELET COUNT 91 K/mm3 (130-400); RED BLOOD COUNT 2.82 M/mm3 (4.20-5.60); REDCELL DISTRIBUTION WIDTH-CV 18.3 % (11.5-14.5)
[2021-01-08 07:37] LABS: CREATININE, serum 1.64 mg/dL (0.72-1.25); HEMATOCRIT 24.3 % (42.0-52.0); HEMOGLOBIN 7.9 g/dl (13.5-18.0); MEAN CORPUSCULAR HEMOGLOBIN 28 pg (27.0-31.0); POTASSIUM 4.9 mmol/L (3.5-4.5)
[2021-01-08 10:24] LABS: BAND 1 % (0-10); LYMPHOCYTE 19 % (20.0-51.0); NEUTROPHILS 79 % (42.0-75.2)
[2021-01-08 10:30] LABS: HYPOCHROMIA 1+; SCHISTOCYTES 2+
[2021-01-08 10:31] LABS: ANISOCYTOSIS 2+; PLATELET ESTIMATE DECREASED (NORMAL)
--- NOTE | 2021-01-08 12:39 | NUR ---
Pt's son Raji called in, update provided. Raji is interested in starting the conversation on Hospice care for his father
--- NOTE | 2021-01-08 13:14 | NUR ---
Plan is to return to [facility] where he resides. JOSE LUIS staffed with nurse who reports patient confused. JOSE LUIS called alternate contact Son Raji at . Raji reports that he and his mother share DPOA for patient. Raji is the secondary contact. Raji reports that the patient and spouse both reside at [facility] however his mother is in Assisted Living. Raji reports that the patient has a DNR, {POA, and Living will. Patient is reported to use a motorized scooter and has two Patient is reported to use a walker to support transfer from chairs or tolieting. Raji indicated that patient does no having any DME use for oxygen or heart related concerns. Raji reports that he thinks the conversation for hospice/palliative care should be breach with his mother at some point. JOSE LUIS educated that a consult with palliative care can happen. Educated on services will case management. Will continue to follow care. SW will continue to follow care.
[2021-01-08 18:04] LABS: HEMATOCRIT 22.1 % (42.0-52.0)
--- NOTE | 2021-01-08 18:45 | NUR ---
ANTHONY Christine and MD Kevin notified: H&H decreasing, + fluid balance of approx 2.5L, pt third spacing in BLE, pt more difficult to arrouse (as he was the night before last) and therefore unable to take any of his PO meds, heart rate maintaining 115-135bmp, BP maintaining MAPs 65-70 with systolics 85-95, no signs of bleeding observed Per MD Kevin: if pt unable to take 2100hr PO meds call physician - NG tube or IV Amiodarone may be required Family at bedside, update provided
--- NOTE | 2021-01-08 20:50 | NUR ---
PATIENT NOTED TO HAVE BP OF 70/50 AND MAP OF 56 WITH NO IMPROVEMENT AFTER NO INVASIVE INTERVENTIONS, INITIATED LEVOPHED PER ORDERS AND NOTIFIED HOSPITALIST OF NEW EVENTS
--- NOTE | 2021-01-08 21:40 | NUR ---
DR. GRIMALDO AT BEDSIDE AND PLACED CENTRAL LINE IN RIGHT IJ, CXR ORDERED FOR COMFIRMATION, PATIENT TOLERATED PROCEDURE WELL AND WITHOUT COMPLICATIONS OR DISTRESS
[2021-01-09] VITALS (167 sets, daily range): BP systolic 86–107; BP diastolic 61–70; PULSE 96–136; TEMP 97.5–97.6; O2SAT 63–100
[2021-01-09 04:17] LABS: MEAN CELL VOLUME 86 fl (80.0-100.0); MEAN CORPUSCULAR HGB CONC 32 g/dl (33.0-37.0); MEAN PLATELET VOLUME 13.5 fl (7.4-10.4); PLATELET COUNT 114 K/mm3 (130-400); RED BLOOD COUNT 2.16 M/mm3 (4.20-5.60); REDCELL DISTRIBUTION WIDTH-CV 18.4 % (11.5-14.5)
[2021-01-09 04:26] LABS: HEMATOCRIT 18.5 % (42.0-52.0); HEMOGLOBIN 5.9 g/dl (13.5-18.0); MEAN CORPUSCULAR HEMOGLOBIN 27 pg (27.0-31.0)
[2021-01-09 04:40] LABS: CALCIUM 9.8 mg/dL (8.4-10.2); CREATININE, serum 1.79 mg/dL (0.72-1.25)
[2021-01-09 05:00] LABS: MEAN CELL VOLUME 85 fl (80.0-100.0); MEAN CORPUSCULAR HGB CONC 32 g/dl (33.0-37.0); MEAN PLATELET VOLUME 13.7 fl (7.4-10.4); PLATELET COUNT 120 K/mm3 (130-400); RED BLOOD COUNT 2.13 M/mm3 (4.20-5.60); REDCELL DISTRIBUTION WIDTH-CV 18.4 % (11.5-14.5)
[2021-01-09 05:03] LABS: HEMATOCRIT 18.1 % (42.0-52.0); HEMOGLOBIN 5.8 g/dl (13.5-18.0); MEAN CORPUSCULAR HEMOGLOBIN 27 pg (27.0-31.0)
--- NOTE | 2021-01-09 05:08 | NUR ---
PATIENT HAS BLOODY DRAINAGE FROM RIGHT IJ INSERTION SITE, PRESSURE DRESSING APPLIED AND INCREASED PRESSURE APPLIED TO ACHIEVE HEMOSTASIS
[2021-01-09 05:17] LABS: BAND 4 % (0-10); HYPOCHROMIA 1+; LYMPHOCYTE 37 % (20.0-51.0); NEUTROPHILS 48 % (42.0-75.2); PLATELET ESTIMATE DECREASED (NORMAL)
[2021-01-09 05:18] LABS: OVALOCYTES 1+; POIKILOCYTOSIS 1+
[2021-01-09 05:19] LABS: ANISOCYTOSIS 1+
--- NOTE | 2021-01-09 06:00 | NUR ---
PATIENT MOUTH BREATHING AT THIS TIME, DIFFICULTY MAINTAINING SATS VIA NC PATIENT PLACED ON OXYMASK AT 6LPM AT THIS TIME WITH IMPROVEMENT IN SATS, PATIENT REPEATING "I JUST WANT TO GO HOME, PLEASE LET ME GO HOME", TLC GIVEN
--- NOTE | 2021-01-09 06:44 | NUR ---
NOTED PATIENT CONTINUES TO HAVE BLEEDING AROUND RIGHT IJ, UNIT OF PRBC'S NOT READY AT THIS TIME
--- NOTE | 2021-01-09 07:35 | NUR ---
Pt tachypenic with labored breathing. Increased O2 required overnight - pt now on oxymask a 6L/min. Levophed infusing through leaky RIJ central line - ABD in place under/besides dressing d/t drainage - HepXa reviewed and within therapeutic range. Pt drowsy but able to answer questions - pt requesting that son Raji and Chante come in to visit soon.
--- NOTE | 2021-01-09 08:10 | NUR ---
Pt's son Raji returned phone call. Yesterday Raji booked flight from [facility] to [place] to arrive at 1600 today. Raji will call Chante (pt's ) to discuss pts worsening and wish to transition goals of care to comfort measures once all family is present. MD Krunal aware and will call Raji and Chante. Elise Torres notified
--- NOTE | 2021-01-09 09:44 | NUR ---
Initial visit; Nurse spoke with Occupational Health And Safety Adviser letting her know of the seriousness of patient's illness and encouraged a visit from Occupational Health And Safety Adviser. Occupational Health And Safety Adviser offered empathy, comfort and prayer for patient and will be available should patient and/or family request a Occupational Health And Safety Adviser return visit.
--- NOTE | 2021-01-09 09:55 | NUR ---
Pt getting ready to go to [facility] scn. No family at bedside. Advised by Raf that he will call when arrives.
--- NOTE | 2021-01-09 09:57 | NUR ---
Clinical updates faxed to Pj at [facility]. Per Pj at [facility] , son Justyn is . Chante has good cognition, but does not drive. Pj is going to arrange for someone to bring Chante up to the hospital. Son Raji reportedly traveling to [facility] today to be here.
--- NOTE | 2021-01-09 10:46 | NUR ---
Pt's Kerrie and three granddaughters are at bedside at this time. reports that she is aware that Brayan is very sick and may not survive this day. She requested that we call in a contract driver from [facility] to give a blessing at bedside. I contacted chaplain Ranjit, and relayed this request. Kerrie reports that she doesn't want to make decisions without Royer and he will be here later today--he is flying in now. She wants him to be comfortable but would like to try to keep him alive if possible, until Royer can get here. Support provided. Comfort quilt on the bed.
--- NOTE | 2021-01-09 12:19 | NUR ---
With family ( and 3 granddaughters) present, pt pronounced by WICHO Buenrostro and myself at 1156. Belongings to be sent with Home. VernaHouseSupervisor notified.
--- NOTE | 2021-01-09 12:46 | NUR ---
Orthopedic Cast Specialist, RN and Director Digital Analytics, was notified of time of ; [facility] called at 1213, donation was declined, reference number [id number]; called to notify [facility] at 1240, sales representative adding machines to call sleeping bag filler to pickup time.
--- NOTE | 2021-01-09 14:55 | NUR ---
0467 Pt departed with Home - all belongings sent with pt
== END 2021-01-09 13:35 | disposition expired | DRG 871 ==
LOC: COL.ER 11:47 → ICU 13:43 → MEDICAL 13:43 → ICU 17:38
PROVIDERS: Emergency Medicine; Internal Medicine Critical Care Medicine; Internal Medicine Pulmonary Disease; Student in an Organized Health Care Education/Training Program; ADMIT Internal Medicine
PROC: 05HM33Z Insertion of Infusion Device into Right Internal Jugular Vein, Percutaneous Approach (ICD-10-PCS; principal; 2021-01-08)
DX: A41.9 Sepsis, unspecified organism (principal); J18.9 Pneumonia, unspecified organism; I21.A1 Myocardial infarction type 2; F02.81 Dementia in other diseases classified elsewhere, unspecified severity, with behavioral disturbance; N17.9 Acute kidney failure, unspecified; L03.116 Cellulitis of left lower limb; L03.115 Cellulitis of right lower limb; D62 Acute posthemorrhagic anemia; Z66 Do not resuscitate; E44.1 Mild protein-calorie malnutrition; G20 Parkinson's disease; I10 Essential (primary) hypertension; K21.9 Gastro-esophageal reflux disease without esophagitis; Z85.828 Personal history of other malignant neoplasm of skin; Z79.82 Long term (current) use of aspirin; I48.91 Unspecified atrial fibrillation; E87.5 Hyperkalemia; D53.9 Nutritional anemia, unspecified; I27.20 Pulmonary hypertension, unspecified; D69.6 Thrombocytopenia, unspecified
CPT/HCPCS: 99223-AI; 99233-AI; 99239; C9113; J0282; J0610; J0692; J1644; J1815; J1940; J1956; J2270; J3370; J7030; J7040; J7050; J7060; P9016